=== PATIENT | male | born 1960 | race African-American/Black ===

== ENCOUNTER 2017-01-31 15:48 | Emergency (ER) | payer OTHER ==
[~2017-01-31] VITALS: Ht 167.6 cm; Wt 83.5 kg
[~2017-01-31 15:48] MED LIST: ASPI81TA3 PO; ATOR80TA75 PO; BENA10TA48 NGT; CARV3.12 PO; CIPR500T4 PO; DOCU-144 PO; HYDR100T7 PO; IBUP-1542 PO; NIFE60TA60 PO; POLY17PO6 PO; TAMS-14 PO; TERA1CAP36 PO; TRAM50TA2 PO
[2017-01-31 16:23] VITALS: Ht 167.6 cm; Wt 83.5 kg
[2017-01-31] MEDS ORDERED: HYDR-842 PO (17:52)
[2017-01-31] MEDS ORDERED: HC1C30 TOP (17:52)
--- NOTE | 2017-01-31 17:56 | ERD ---
ER Documentation Chief Complaint Date/Time DATE: 01/31/17 TIME: 17:54 Chief Complaint INTERMITTENT URICARIA X1 MONTH HPI Patient is a 56-year-old male who is recently living in a transitional home. The patient describes raised bumps over the extremities and trunk that are significantly pruritic. He denies any jaundice, no fevers or chills, no urticaria. No new medications or detergents. The patient has not been taking any medication for this but describes persistence of symptoms. ROS All systems reviewed and are negative except as per history of present illness. Medications Home Meds Active Scripts Hydrocortisone* Topical (Hydrocortisone* Topical) 1%-28.35 Gm Cream..g., 1 APPLIC TOP Q6 Y for ITCHING, #1 TUB 1 Refill Prov:ALONZO PEREZ MD 01/31/17 Hydroxyzine Hcl* (Atarax*) 25 Mg Tab, 25 MG PO Q6H Y for ITCHING, #30 TAB Prov:ALONZO PEREZ MD 01/31/17 Tramadol HCl (Tramadol HCl) 50 Mg Tablet, 50 MG PO BID, #20 TAB Prov:RY GARAY PA-C 08/08/16 Ibuprofen* (Ibuprofen*) 600 Mg Tablet, 600 MG PO Q6, #30 TAB Prov:RY GARAY PA-C 08/08/16 Ciprofloxacin Hcl* (Ciprofloxacin Hcl*) 500 Mg Tablet, 500 MG PO BID, #14 TAB Prov:RY GARAY PA-C 08/08/16 Carvedilol* (Coreg*) 3.125 Mg Tablet, 3.125 MG PO BID, #60 TAB Prov:MARIAH HUBBARD MD 01/08/15 Benazepril Hcl* (Benazepril Hcl*) 10 Mg Tab, 10 MG NGT DAILY, #30 TAB Prov:MARIAH HUBBARD MD 01/08/15 Polyethylene Glycol* (Miralax*) 17 Gm/Pkt Liq, 17 GM PO DAILY Y for CONSTIPATION , #15 PACKET Prov:MARIAH HUBBARD MD 08/31/14 Docusate Sodium* (Colace*) 100 Mg Cap, 100 MG PO BID, #60 TAB Prov:MARIAH HUBBARD MD 08/31/14 Nifedipine* (Procardia XL*) 60 Mg Tabsr, 60 MG PO BID for 30 Days Prov:KATHRYN SILVA NP 08/07/14 Aspirin (Aspirin) 81 Mg Chew, 81 MG PO DAILY for 30 Days Prov:KATHRYN SILVA [employer] 08/07/14 Reported Medications Terazosin Hcl* (Terazosin Hcl*) 1 Mg Capsule, 1 MG PO HS, CAP 01/22/15 Tamsulosin Hcl* (Flomax*) 0.4 Mg Cap.er.24h, 0.4 MG PO DAILY, CAP 01/22/15 Hydralazine Hcl* (Hydralazine Hcl*) 100 Mg Tablet, 100 MG PO Q8, TAB 01/22/15 Atorvastatin* (Atorvastatin*) 80 Mg Tablet, 80 MG PO HS, TAB 01/22/15 Allergies Allergies: Coded Allergies: No Known Allergy (Unverified , 01/22/15) PMhx/Soc History of Surgery: Yes (JAW (REPAIR BROKEN JAW)) Anesthesia Reaction: No Hx Neurological Disorder: Yes (NEUROPATHY) Hx Respiratory Disorders: No Hx Cardiac Disorders: Yes (HTN, CVA w/ R hemiparesis) Hx Psychiatric Problems: Yes (DEPRESSION/SUICIDE ATTEMPTS) Hx Miscellaneous Medical Probl: Yes (DM, diabetic retinopathy, charcots foot, neurogenic bladder, CKD, CVA (2013) Hx Alcohol Use: Yes (ALCOHOL (STOPPED 1-2 YEARS AGO)) Hx Substance Use: No (PT STOPPED 2YEARS AGO) Hx Tobacco Use: No Smoking Status: Never smoker FmHx Family History: No diabetes Physical Exam Vitals Vital Signs Date Time Temp Pulse Resp B/P Pulse Ox O2 Delivery O2 Flow Rate FiO2 01/31/17 16:23 97.4 67 16 168/84 96 Physical Exam General: Well developed, well nourished, no acute distress Head: Normocephalic, atraumatic. Eyes: EOM intact ENT: Moist mucous membranes Neck: Full ROM Respiratory: No respiratory distress Cardiovascular: Good capillary refil Abdominal: Nondistended : Deferred MSK: No edema, no unilateral swelling, 5/5 strength Neurologic: Alert and oriented, moving all extremities, normal speech, steady gait Skin: Raised papular rash over the extremities and trunk, no lesions to the interdigital spaces, no linear lesions, no urticaria Psych: Normal mood Procedures/MDM Clinical exam is most consistent with likely contact dermatitis versus bedbugs. The patient has no evidence of scabies, no signs or symptoms concerning for urticaria or allergic reaction, no evidence of hepatobiliary obstruction. The patient will benefit from cleansing of clothes, sheets, initiation of topical hydrocortisone and Atarax for symptom control. The patient was referred to primary care clinics. no indication for laboratory testing. We discussed follow up with the patient's primary care doctor within 24 to 48 hours as needed. We also discussed return to the emergency room for worsening symptoms or worsening condition. Outpatient referral: [None required] Discharge Medications: Atarax, hydrocortisone 1% cream Departure Diagnosis: Primary Impression: Bed bug bite Encounter type: initial encounter Qualified Code: W57.XXXA - Bed bug bite, initial encounter Condition: Stable Patient Instructions: Bedbugs Referrals: COMMUNITY CLINICS YOU HAVE RECEIVED A MEDICAL SCREENING EXAM AND THE RESULTS INDICATE THAT YOU DO NOT HAVE A CONDITION THAT REQUIRES URGENT TREATMENT IN THE EMERGENCY DEPARTMENT. FURTHER EVALUATION AND TREATMENT OF YOUR CONDITION CAN WAIT UNTIL YOU ARE SEEN IN YOUR DOCTORS OFFICE WITHIN THE NEXT 1-2 DAYS. IT IS YOUR RESPONSIBILITY TO MAKE AN APPOINTMENT FOR FOLOW-UP CARE. IF YOU HAVE A PRIMARY DOCTOR --you should call your primary doctor and schedule an appointment IF YOU DO NOT HAVE A PRIMARY DOCTOR YOU CAN CALL OUR PHYSICIAN REFERRAL HOTLINE AT IF YOU CAN NOT AFFORD TO SEE A PHYSICIAN YOU CAN CHOSE FROM THE FOLLOWING ON LICENSE OF [facility] CLINICS [facility] [address] [facility]. [facility] [address] [facility] [facility] [address] [facility]. [facility] [address] [facility]. [facility] [address] [facility]. [facility]. [address] [facility] YOU HAVE RECEIVED A MEDICAL SCREENING EXAM AND THE RESULTS INDICATE THAT YOU DO NOT HAVE A CONDITION THAT REQUIRES URGENT TREATMENT IN THE EMERGENCY DEPARTMENT. FURTHER EVALUATION AND TREATMENT OF YOUR CONDITION CAN WAIT UNTIL YOU ARE SEEN IN YOUR DOCTORS OFFICE WITHIN THE NEXT 1-2 DAYS. IT IS YOUR RESPONSIBILITY TO MAKE AN APPOINTMENT FOR FOLOW-UP CARE. IF YOU HAVE A PRIMARY DOCTOR --you should call your primary doctor and schedule and appointment IF YOU DO NOT HAVE A PRIMARY DOCTOR YOU CAN CALL OUR PHYSICIAN REFERRAL HOTLINE AT . IF YOU CAN NOT AFFORD TO SEE A PHYSICIAN YOU CAN CHOSE FROM THE FOLLOWING [facility] INSTITUTIONS: [facility] [address] [place] [address] [facility] [address] [place], [place] [id number] [place] [address] [address] [place] [address] Additional Instructions: Call your primary care doctor TOMORROW for an appointment during the next 1 WEEK.Tell the national secretary that you were referred from this facility.See the doctor sooner or return here if your condition worsens before your appointment time. ALONZO PEREZ MD Jan 31, 2017 17:56
== END 2017-01-31 18:50 | disposition home or self-care (01) ==
LOC: EDUNIT# 15:48 → FTE 15:48
DX: S80.861A Insect bite (nonvenomous), right lower leg, initial encounter (principal); S30.860A Insect bite (nonvenomous) of lower back and pelvis, initial encounter; I12.9 Hypertensive chronic kidney disease with stage 1 through stage 4 chronic kidney disease, or unspecified chronic kidney disease; N18.9 Chronic kidney disease, unspecified; W57.XXXA Bitten or stung by nonvenomous insect and other nonvenomous arthropods, initial encounter; Y92.9 Unspecified place or not applicable; Z79.82 Long term (current) use of aspirin
CPT/HCPCS: 99283